=== PATIENT | female | born 1975 | race American Indian/Alaskan Native ===

== ENCOUNTER 2021-06-22 00:58 | Emergency (ER) | payer MEDICAID ==
[2021-06-22 01:18] VITALS: BP 102/59
--- NOTE | 2021-06-22 04:35 | XRay Report ---
XR chest routine 2V INDICATION / CLINICAL INFORMATION: cough. COMPARISON: None available. FINDINGS: SUPPORT DEVICES: None. HEART /PULMONARY VASCULATURE: No significant abnormality. LUNGS / PLEURA: No significant pulmonary or pleural abnormality. No pneumothorax. ADDITIONAL FINDINGS: No significant additional findings. IMPRESSION: 1. No acute findings. Signer Name: Cameron Hansen MD Signed: 06/22/2021 4:30 AM Workstation Name: [id number]
== END 2021-06-22 06:14 | disposition home or self-care (01) ==
LOC: ED 00:58
DX: U07.1 COVID-19 (principal); Z53.21 Procedure and treatment not carried out due to patient leaving prior to being seen by health care provider
CPT/HCPCS: 71046; 99282